=== PATIENT | male | born 1965 | race Caucasian/White ===

== ENCOUNTER 2016-10-25 15:36 | Emergency (ER) | payer BC ==
[2016-10-25 16:34] VITALS: BP 109/63
[2016-10-25] MEDS ORDERED: Albuterol/Ipratropium 3.0-0.5 MG/3 ML Neb Soln NEB ONE (16:47)
[2016-10-25] MEDS ORDERED: Sodium Chloride 0.9% 10 ML Syringe FLUSH PRN (16:48)
[2016-10-25] MEDS ORDERED: methylPREDNISolone Sodium Succinate 125 MG/2 ML SDV IVPUSH ONE (16:53)
[2016-10-25] MEDS ORDERED: Loratadine 10 MG Tab PO ONE (16:54)
[2016-10-25] MEDS ORDERED: Levofloxacin 500 MG Tab PO ONE (18:03)
--- NOTE | 2016-10-26 15:38 | EDM.PDOC ---
Scribed by Danita Zamora 10/25/161911 for Rajiv Morse MD ED HPI GENERAL MEDICAL PROBLEM - General Chief Complaint: Respiratory Problem Stated Complaint: CONGESTED, HARD TO BREATH, [id number] Time Seen by Provider: 10/25/16 16:47 Source of Information: Reports: Patient, RN, RN Notes Reviewed History Limitations: Reports: No Limitations - History of Present Illness INITIAL COMMENTS - FREE TEXT/NARRATIVE: Patient complaint of cough and wheezing x1 week. Complaint of sinus pain, congestion and drainage x 3 to 4 weeks. Denies fever. Admits to chills. Location: Reports: Chest Quality: Reports: Ache Severity: Moderate Improves with: Reports: None Worsens with: Reports: None Associated Symptoms: Reports: No Other Symptoms Chest Pain Score (Numeric/FACES): 7 - Related Data Allergies Allergy/AdvReac Type Severity Reaction Status Date / Time No Known Allergies Allergy Verified 10/03/15 19:08 MDT Home Meds: Home Meds Albuterol Sulfate [Albuterol Sulfate HFA] 1 - 2 puff INH ASDIRECTED PRN [History] Albuterol/Ipratropium [DuoNeb 3.0-0.5 MG/3 ML] 1 applic INH ASDIRECTED PRN 08/12 [History] Albuterol [IJD: Ventolin HFA] 2 puff INH Q4H PRN #18 gm 10/03/15 [Rx] Fluticasone/Salmeterol [Advair Diskus 250-50] 1 puff INH BID #1 inhaler [Rx] Prednisone [IJD: predniSONE] 20 mg PO DAILY #20 tab 10/03/15 [Rx] Past Medical History Cardiovascular History: Reports: Hypertension Respiratory History: Reports: Asthma Other Musculoskeletal History: trauma to right leg with surgeries and bonegrafts , wears built up shoe Endocrine/Metabolic History: Reports: Obesity/BMI 30+ Social & Family History - Family History Family Medical History: Noncontributory - Tobacco Use Smoking Status *Q: Current Every Day Smoker Years of Tobacco use: 30 Packs/Tins Daily: 2 - Caffeine Use Caffeine Use: Reports: Soda - Recreational Drug Use Recreational Drug Use: No ED ROS GENERAL - Review of Systems Review Of Systems: ROS reveals no pertinent complaints other than HPI. ED EXAM, GENERAL - Physical Exam Exam: See Below Exam Limited By: No Limitations General Appearance: Alert, WD/WN, No Apparent Distress, Obese Eye Exam: Bilateral Eye: Normal Inspection Ears: Normal TMs Nose: Other (inferior turbinates injected with puruelnt sinus drainage. ) Throat/Mouth: Normal Inspection, Normal Lips, Normal Oropharynx Head: Atraumatic, Normocephalic Neck: Normal Inspection, Supple, Non-Tender, Full Range of Motion Respiratory/Chest: Other (inspiratory adn expiratory wheezing bilateral.) Cardiovascular: Normal Peripheral Pulses, Regular Rate, Rhythm, No Edema, No Gallop, No JVD, No Murmur, No Rub GI/Abdominal: Other (benign obese) (Male) Exam: Deferred Rectal (Males) Exam: Deferred Back Exam: Normal Inspection, Full Range of Motion, NT Extremities: Normal Inspection, Normal Range of Motion, Non-Tender, Normal Capillary Refill, No Pedal Edema Neurological: Alert, Oriented, CN II-XII Intact, Normal Cognition, Normal Gait, Normal Reflexes, No Motor/Sensory Deficits Psychiatric: Normal Affect, Normal Mood Skin Exam: Warm, Dry, Intact, Normal Color, No Rash Lymphatic: No Adenopathy Course - Vital Signs Last Recorded V/S: Last Vital Signs Temp 37.5 C 10/25/16 16:33 Pulse 84 10/25/16 16:53 Resp 16 10/25/16 16:33 BP 109/63 10/25/16 16:33 Pulse Ox 98 10/25/16 16:53 - Orders/Labs/Meds Orders: Active Orders 24 hr Category Date Time Status Peripheral IV Care [RC] . DIRECTED Care 10/25/16 16:49 Active RT Aerosol Therapy [RC] ASDIRECTED Care 10/25/16 16:47 Active Peripheral IV Insertion Adult [OM.PC] Stat Oth 10/25/16 16:47 Ordered Labs: Laboratory Tests 10/25/16 Range/Units 17:00 WBC 7.0 (5.0-10.0) 10^3/uL RBC 4.45 L (4.6-6.2) 10^6/uL Hgb 13.0 L (14.0-18.0) g/dL Hct 39.0 L (40.0-54.0) % MCV 87.6 (80-100) fL MCH 29.2 (27.0-34.0) pg MCHC 33.3 (33.0-35.0) g/dL Plt Count 248 (150-450) 10^3/uL Neut % (Auto) 63.4 (42.2-75.2) % Lymph % (Auto) 15.7 L (20.5-50.1) % Archuleta % (Auto) 8.0 (2-8) % Eos % (Auto) 11.5 H (1.0-3.0) % Baso % (Auto) 1.4 H (0.0-1.0) % Meds: Medications Discontinued Medications Generic Name Dose Route Start Last Admin Trade Name Freq PRN Reason Stop Dose Admin Albuterol/Ipratropium 3 ml 10/25/16 16:47 10/25/16 16:52 Duoneb 3.0-0.5 Mg/3 Ml NEB 10/25/16 16:48 3 ml ONETIME ONE Administration Levofloxacin 500 mg 10/25/16 18:03 10/25/16 18:10 Levaquin PO 10/25/16 18:04 500 mg ONETIME ONE Administration Loratadine 10 mg 10/25/16 16:54 10/25/16 17:05 Claritin PO 10/25/16 16:55 10 mg ONETIME ONE Administration Methylprednisolone Sodium Succinate 125 mg 10/25/16 16:53 10/25/16 17:04 Solu-Medrol IVPUSH 10/25/16 16:54 125 mg ONETIME ONE Administration Sodium Chloride 10 ml 10/25/16 16:48 10/25/16 17:04 Saline Flush FLUSH 10 ml ASDIRECTED PRN Administration Keep Vein Open - Radiology Interpretation Free Text/Narrative:: X-ray paranasal sinuses: Mucosal thickening in both maxillary sinuses may represent sinusitis. See rad report. Chest x-ray: Opacity in the medial right base may represent atelectasis or pneumonia. See rad report. Departure - Departure Time of Disposition: 17:56 Disposition: Home, Self-Care 01 Condition: Fair Clinical Impression: Maxillary sinusitis, Pneumonia, Acute severe exacerbation of asthma - Discharge Information Instructions: Sinusitis, Adult, [id number], Asthma, Adult, [id number], Community-Acquired Pneumonia, Adult, [id number] Referrals: PCP,Not In Area [Primary Care Provider] - Forms: ED Department Discharge Additional Instructions: RX: Levaquin 500mg. RX: Prednisone 20mg. Use nebulizer every 3 to 4 hours until improved. Use over the counter decongestant such as Coracidin HBP as needed. Follow up in clinic next week for recheck. Return to ER if worse at any time. - My Orders Last 24 Hours: My Active Orders 10/25/16 16:47 RT Aerosol Therapy [RC] ASDIRECTED Peripheral IV Insertion Adult [OM.PC] Stat 10/25/16 16:49 Peripheral IV Care [RC] . DIRECTED - Assessment/Plan Last 24 Hours: My Active Orders 10/25/16 16:47 RT Aerosol Therapy [RC] ASDIRECTED Peripheral IV Insertion Adult [OM.PC] Stat 10/25/16 16:49 Peripheral IV Care [RC] . DIRECTED I have read and agree with the documentation that has been completed regarding this visit. By signing this record, I attest that the documentation was completed in my physical presence and is an accurate record of the encounter.
== END 2016-10-25 18:12 | disposition home or self-care (01) ==
LOC: DL.ED 15:36
DX: J45.901 Unspecified asthma with (acute) exacerbation (principal); J18.9 Pneumonia, unspecified organism; J32.0 Chronic maxillary sinusitis; I10 Essential (primary) hypertension; E66.9 Obesity, unspecified; F17.210 Nicotine dependence, cigarettes, uncomplicated; Z79.899 Other long term (current) drug therapy; Z68.38 Body mass index [BMI] 38.0-38.9, adult
CPT/HCPCS: 36415; 70220; 71020; 85025; 94640; 96374; 99285; A9270; J2930; J7050